=== PATIENT | male | born 1930 | race Caucasian/White ===

== ENCOUNTER → 2016-04-14 | Day surgery (SDC) | payer MEDICARE ==
[~2016-04-14] MED LIST: AMLO2.5T PO; ASPI-110 PO; B12; COQ1100C PO; D31000CA; FENO145T2 PO; FLUT1SPR5 EACH NARE; GENTAMICIN SULFATE 80 MG/2 ML VIAL ONE; LACTATED RINGER'S 1000 ML INJ 1,000 ML ONE; MACR100C2 PO; METO25TA3 PO; MIDAZOLAM HCL 2 MG/2 ML VIAL ONE; ONDANSETRON HCL 4 MG/2 ML VIAL IV PUSH ONE; PANT40TA3 PO; PRAV40TA2 PO; PROPOFOL 200 MG/20 ML AMP IV ONE; SODIUM CHLORIDE 0.9% INJ 100 ML IV ONE
--- NOTE | 2016-04-14 12:26 | TN ---
cc: BECKY TEIXEIRA M.D. 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 INDICATIONS Mr. Graff is a 85-year-old gentleman who previously underwent a TURP in January has had some postoperative issues and then had some retention recently and attempts at placing a Oliveira catheter by a nurse were unsuccessful and had to be placed this over a wire cystoscopically presents now for further evaluation. 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 The ureteral orifice is normal size shape and position refluxing clear urine, there is mild catheter changes but otherwise unremarkable examination. PROCEDURE: The procedure as well as risks and benefits were explained to the patient. Informed consent was obtained the patient was taken major operative theater where he was placed in supine position. The patient was identified as well as the operative site. Dyer time-out was performed in the standard fashion. At this time general anesthetic and prophylactic intravenous antibiotics consisting of gentamicin 80 mg was administered after adequate anesthetic he was placed in low dorsolithotomy position, prepped and draped usual sterile fashion. At this time a 22.5 Italian cystoscope with a 30 lens was inserted urethra and bladder with the above findings. The bladder was then decompressed cystoscope removed. The patient tolerated procedure well, emerged from anesthetic without difficulty and transferred to the recovery in stable condition to be discharged home when criteria is met to no obvious complications. MD VISHAL Chris/maria isabel /11:50 AM /12:17 PM
== END | disposition home or self-care (01) ==
LOC: ESDC 08:39
PROVIDERS: ATTEND Urology
DX: N36.5 Urethral false passage (principal)
CPT/HCPCS: 00910; 52000; J1580; J2250; J2405; J3010; J7120

== ENCOUNTER → 2016-06-24 | Day surgery (SDC) | payer MEDICARE ==
[~2016-06-24] MED LIST changes: -MIDAZOLAM HCL 2 MG/2 ML VIAL ONE; -ONDANSETRON HCL 4 MG/2 ML VIAL IV PUSH ONE; -PROPOFOL 200 MG/20 ML AMP IV ONE; -SODIUM CHLORIDE 0.9% INJ 100 ML IV ONE
== END | disposition home or self-care (01) ==
LOC: ESDC 13:57
PROVIDERS: ATTEND Urology
DX: N35.9 Urethral stricture, unspecified (principal); Z53.9 Procedure and treatment not carried out, unspecified reason
CPT/HCPCS: 52276; J1580; J7120